=== PATIENT | female | born 1995 | race African-American/Black ===

== ENCOUNTER 2019-01-20 20:52 | Emergency (ER) | payer OTHER ==
[2019-01-20 22:05] LABS: Absolute Lymphocytes (CBC) 3.2 K/uL (0.7-4.9); Absolute Monocytes 0.6 K/uL (0.1-1.3); Absolute Neutrophil 2.6 K/uL (1.8-8.0); Basophils % 0.8 % (0-1.3); Eosinophils % 3.6 % (0-4.4); Hematocrit 41.8 % (36.0-45.0); Lymphocytes % 47.3 % (15.3-44.8); MPV 7.9 fL (7.6-11.3); Monocytes % 9.4 % (3.3-12.3); RBC Red Blood Cell Count 4.82 M/uL (3.86-4.86)
[2019-01-20] MEDS ORDERED: NA CHLORIDE 0.9% 1,000 ML ONE (22:06)
[2019-01-20 22:21] LABS: ALT/SGPT 27 U/L (12-78); AST/SGOT 17 U/L (15-37); Albumin 3.8 g/dL (3.4-5.0); Alkaline Phosphatase 78 U/L (45-117); BUN Blood Urea Nitrogen 16 mg/dL (7-18); Bicarbonate 26 mmol/L (21-32); Bilirubin Direct < 0.1 mg/dL (0-0.2); Bilirubin Total 0.2 mg/dL (0.2-1.0); Glucose Level 95 mg/dL (74-106); Magnesium 2.2 mg/dL (1.8-2.4); NT PRO-BNP 10 pg/mL (<125); Potassium 3.9 mmol/L (3.5-5.1); Protein, Total 7.5 g/dL (6.4-8.2); Sodium Level 143 mmol/L (136-145); Troponin (Emerg Dept Use Only) < 0.02 ng/mL (0.0-0.045)
[2019-01-20 22:26] LABS: Urine Blood NEGATIVE (NEG); Urine Glucose NEGATIVE (NEG); Urine Protein NEGATIVE (NEG); Urine Specific Gravity 1.015 (1.005-1.030); Urine pH 5.5 (5.0-7.0)
[2019-01-20 22:28] LABS: Protime INR 1.04
[2019-01-20 23:18] LABS: Blood Morphology Comment NOT SEEN (NOT SEEN); Platelet Estimate ADEQ
--- NOTE | 2019-01-21 00:18 | EDPHYS ---
Physician Documentation [facility] Name: Lexi Oconnor Age: 23 yrs Sex: Female : 1995 Arrival Date: 01/20/2019 Time: 20:53 Bed 25 Private MD: Lorraine Oconnor K ED Physician Patel Pineda HPI: 01/20 21:48 This 23 yrs old Black Female presents to ER via Wheelchair with complaints of Chest harris Tightness. 21:48 The patient or guardian reports chest pain that is located primarily in the anterior harris chest wall, bilaterally. The pain does not radiate. Associated signs and symptoms: Pertinent positives: shortness of breath. The chest pain is described as stabbing. Duration: The patient or guardian reports multiple episodes, that wax and wane. Modifying factors: The symptoms are alleviated by remaining still, the symptoms are aggravated by cough, deep breath. Severity of pain: At its worst the pain was mild in the emergency department the pain is unchanged. The patient has not experienced similar symptoms in the past. 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 - Social history:: Smoking status: Patient/guardian denies using tobacco. - Ebola Screening: : No symptoms or risks identified at this time. - Family history:: not pertinent. ROS: 21:48 Constitutional: Negative for fever, chills, and weight loss, Eyes: Negative for injury, harris pain, redness, and discharge, ENT: Negative for injury, pain, and discharge, Neck: Negative for injury, pain, and swelling, Cardiovascular: Negative for chest pain, palpitations, and edema, Abdomen/GI: Negative for abdominal pain, nausea, vomiting, diarrhea, and constipation, Back: Negative for injury and pain, : Negative for injury, bleeding, discharge, and swelling, MS/Extremity: Negative for injury and deformity, Skin: Negative for injury, rash, and discoloration, Neuro: Negative for headache, weakness, numbness, tingling, and seizure, Psych: Negative for depression, anxiety, suicide ideation, homicidal ideation, and hallucinations, Allergy/Immunology: Negative for hives, rash, and allergies, Endocrine: Negative for neck swelling, polydipsia, polyuria, polyphagia, and marked weight changes, Hematologic/Lymphatic: Negative for swollen nodes, abnormal bleeding, and unusual bruising. 21:48 Respiratory: Positive for shortness of breath. Exam: 21:48 Constitutional: This is a well developed, well nourished patient who is awake, alert, harris and in no acute distress. Head/Face: Normocephalic, atraumatic. Eyes: Pupils equal round and reactive to light, extra-ocular motions intact. Lids and lashes normal. Conjunctiva and sclera are non-icteric and not injected. Cornea within normal limits. Periorbital areas with no swelling, redness, or edema. ENT: Nares patent. No nasal discharge, no septal abnormalities noted. Tympanic membranes are normal and external auditory canals are clear. Oropharynx with no redness, swelling, or masses, exudates, or evidence of obstruction, uvula midline. Mucous membranes moist. Neck: Trachea midline, no thyromegaly or masses palpated, and no cervical lymphadenopathy. Supple, full range of motion without nuchal rigidity, or vertebral point tenderness. No Meningismus. Chest/axilla: Normal chest wall appearance and motion. Nontender with no deformity. No lesions are appreciated. Cardiovascular: Regular rate and rhythm with a normal S1 and S2. No gallops, murmurs, or rubs. Normal PMI, no JVD. No pulse deficits. Respiratory: Lungs have equal breath sounds bilaterally, clear to auscultation and percussion. No rales, rhonchi or wheezes noted. No increased work of breathing, no retractions or nasal flaring. Abdomen/GI: Soft, non-tender, with normal bowel sounds. No distension or tympany. No guarding or rebound. No evidence of tenderness throughout. Back: No spinal tenderness. No costovertebral tenderness. Full range of motion. Female : Normal external genitalia. Skin: Warm, dry with normal turgor. Normal color with no rashes, no lesions, and no evidence of cellulitis. MS/ Extremity: Pulses equal, no cyanosis. Neurovascular intact. Full, normal range of motion. Neuro: Awake and alert, GCS 15, oriented to person, place, time, and situation. Cranial nerves II-XII grossly intact. Motor strength 5/5 in all extremities. Sensory grossly intact. Cerebellar exam normal. Normal gait. Psych: Awake, alert, with orientation to person, place and time. Behavior, mood, and affect are within normal limits. 21:48 Musculoskeletal/extremity: DVT Exam: No signs of deep vein thrombosis. no pain, no swelling, no tenderness, negative Homans' sign noted on exam, no appreciated bluish discoloration, no erythema, no increased warmth. Vital Signs: 21:00 BP 145 / 88; Pulse 88; Resp 16; Temp 98.8(O); Pulse Ox 99% on R/A; Weight 64.86 kg; lp1 Height 5 ft. 7 in. (170.18 cm); Pain 0/10; 22:05 BP 115 / 77; Pulse 83; Resp 19 S; Pulse Ox 99% on R/A; ca1 23:00 BP 110 / 75; Pulse 89; Resp 19; Pulse Ox 100% on R/A; ca1 23:55 BP 108 / 65; Pulse 86; Resp 19 S; Pulse Ox 99% on R/A; ca1 01/21 00:20 BP 111 / 67; Pulse 82; Resp 19 S; Pulse Ox 99% on R/A; ca1 01/20 21:00 Body Mass Index 22.40 (64.86 kg, 170.18 cm) lp1 MDM: 01/20 21:17 Patient medically screened. [facility] 21:50 Data reviewed: vital signs, nurses notes, lab test result(s), EKG, radiologic studies, [facility] CT scan, plain films. 01/20 21:46 Order name: Basic Metabolic Panel; Complete Time: 23:07 [facility] 01/20 21:46 Order name: CBC with Diff; Complete Time: 23:27 [facility] 01/20 21:46 Order name: LFT's; Complete Time: 23:07 [facility] 01/20 21:46 Order name: Magnesium; Complete Time: 23:07 [facility] 01/20 21:46 Order name: NT PRO-BNP; Complete Time: 23:07 [facility] 01/20 21:46 Order name: PT-INR; Complete Time: 23:07 [facility] 01/20 21:46 Order name: Troponin (emerg Dept Use Only); Complete Time: 23:07 [facility] 01/20 21:46 Order name: XRAY Chest (1 view) [facility] 01/20 21:46 Order name: CT Chest For PE Angio [facility] 01/20 21:46 Order name: Urine Culture [facility] 01/20 21:57 Order name: Urine Dipstick--Ancillary (enter results); Complete Time: 23:07 [facility] 01/20 21:57 Order name: Urine --Ancillary (enter results); Complete Time: 23:07 [facility] 01/20 22:10 Order name: Manual Differential; Complete Time: 23:27 [facility] 01/20 21:46 Order name: EKG; Complete Time: 21:46 [facility] 01/20 21:46 Order name: Cardiac monitoring; Complete Time: 21:58 [facility] 01/20 21:46 Order name: EKG - Nurse/Tech; Complete Time: 21:58 [facility] 01/20 21:46 Order name: IV Saline Lock; Complete Time: 21:58 [facility] 01/20 21:46 Order name: Labs collected and sent; Complete Time: 21:58 [facility] 01/20 21:46 Order name: O2 Per Protocol; Complete Time: 21:58 [facility] 01/20 21:46 Order name: O2 Sat Monitoring; Complete Time: 21:59 [facility] 01/20 21:46 Order name: Urine Dipstick-Ancillary (obtain specimen); Complete Time: 21:58 [facility] 01/20 21:46 Order name: Urine Test (obtain specimen); Complete Time: 21:58 [facility] Administered Medications: 21:50 Drug: NS 0.9% 1000 ml Route: IV; Rate: 1 bolus; Site: left antecubital; ca1 23:12 Follow up: Response: No adverse reaction; IV Status: Completed infusion ca1 Disposition: 01/21/19 00:17 Discharged to Home. Impression: Chest pain on breathing. - Condition is Stable. - Discharge Instructions: Nonspecific Chest Pain, Pleurisy, Nonspecific Chest Pain, Roah-dg-Vnia, Pleurisy, [id number]-[id number]. - Prescriptions for Motrin IB 200 mg Oral Tablet - take 2 tablet by ORAL route every 6 hours As needed as needed with food; 30 tablet. Pepcid 20 mg Oral Tablet - take 1 tablet by ORAL route once daily; 20 tablet. - Medication Reconciliation Form, Thank You Letter, Antibiotic Education, Prescription Opioid Use form. - Follow up: Lorraine Oconnor; When: 2 - 3 days; Reason: Recheck today's complaints, Continuance of care, Re-evaluation by your physician. - Problem is new. - Symptoms have improved. Signatures: Dispatcher [employer] EDMS Patel Pineda MD MD cha Pena, Laura, RN RN lp1 Tere Iyer RN RN ca1 Corrections: (The following items were deleted from the chart) 01/21 00:36 00:17 01/21/2019 00:17 Discharged to Home. Impression: Chest pain on breathing. ca1 Condition is Stable. Discharge Instructions: Nonspecific Chest Pain, Nonspecific Chest Pain, [id number], Pleurisy, Pleurisy, [id number]. Prescriptions for Motrin IB 200 mg Oral Tablet - take 2 tablet by ORAL route every 6 hours As needed as needed with food; 30 tablet, Pepcid 20 mg Oral Tablet - take 1 tablet by ORAL route once daily; 20 tablet. and Forms are Medication Reconciliation Form, Thank You Letter, Antibiotic Education, Prescription Opioid Use. Follow up: Lorraine Oconnor; When: 2 - 3 days; Reason: Recheck today's complaints, Continuance of care, Re-evaluation by your physician. Problem is new. Symptoms have improved. harris
--- NOTE | 2019-01-21 00:18 | ER ---
Nurse's Notes [facility] Name: Lexi Oconnor Age: 23 yrs Sex: Female : 1995 Arrival Date: 01/20/2019 Time: 20:53 Bed 25 Private MD: Lorraine Oconnor K Diagnosis: Chest pain on breathing Presentation: 01/20 20:59 Presenting complaint: Patient states: Chest tightness that began an hour ago; "It's not lp1 painful, just like discomfort whenever I exhale";. Transition of care: patient was not received from another setting of care. Onset of symptoms was January 20, 2019 at 20:00. Risk Assessment: Do you want to hurt yourself or someone else? Patient reports no desire to harm self or others. Initial Sepsis Screen: Does the patient meet any 2 criteria? No. Patient's initial sepsis screen is negative. Does the patient have a suspected source of infection? No. Patient's initial sepsis screen is negative. Care prior to arrival: None. 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 - Social history:: Smoking status: Patient/guardian denies using tobacco. - Ebola Screening: : No symptoms or risks identified at this time. - Family history:: not pertinent. Screenin:01 Abuse screen: Denies threats or abuse. Denies injuries from another. Nutritional lp1 screening: No deficits noted. Tuberculosis screening: No symptoms or risk factors identified. Fall Risk None identified. Assessment: 21:00 General: Appears in no apparent distress. comfortable, Behavior is calm, cooperative, ca1 appropriate for age. Pain: Complains of pain in chest Pain does not radiate. Pain currently is 4 out of 10 on a pain scale. Quality of pain is described as tightness Pain began 1 hour ago. Neuro: Level of Consciousness is awake, alert, obeys commands, Oriented to person, place, time, situation. Cardiovascular: Heart tones S1 S2 present Capillary refill < 3 seconds Patient's skin is warm and dry. Respiratory: Airway is patent Respiratory effort is even, unlabored, Respiratory pattern is regular, symmetrical, Breath sounds are clear bilaterally. GI: Abdomen is flat, non-distended, Bowel sounds present X 4 quads. Abd is soft and non tender X 4 quads. : No deficits noted. No signs and/or symptoms were reported regarding the genitourinary system. EENT: No deficits noted. No signs and/or symptoms were reported regarding the EENT system. Derm: Skin is intact, is healthy with good turgor, Skin is pink, warm \\T\\ dry. Musculoskeletal: Circulation, motion, and sensation intact. Capillary refill < 3 seconds. 22:05 Reassessment: Patient appears in no apparent distress at this time. Patient and/or ca1 family updated on plan of care and expected duration. Pain level reassessed. Patient is alert, oriented x 3, equal unlabored respirations, skin warm/dry/pink. 23:00 Reassessment: Patient appears in no apparent distress at this time. Patient is alert, ca1 oriented x 3, equal unlabored respirations, skin warm/dry/pink. 23:55 Reassessment: Patient appears in no apparent distress at this time. Patient is alert, ca1 oriented x 3, equal unlabored respirations, skin warm/dry/pink. 01/21 00:20 Reassessment: Patient appears in no apparent distress at this time. Patient is alert, ca1 oriented x 3, equal unlabored respirations, skin warm/dry/pink. Vital Signs: 01/20 21:00 BP 145 / 88; Pulse 88; Resp 16; Temp 98.8(O); Pulse Ox 99% on R/A; Weight 64.86 kg; lp1 Height 5 ft. 7 in. (170.18 cm); Pain 0/10; 22:05 BP 115 / 77; Pulse 83; Resp 19 S; Pulse Ox 99% on R/A; ca1 23:00 BP 110 / 75; Pulse 89; Resp 19; Pulse Ox 100% on R/A; ca1 23:55 BP 108 / 65; Pulse 86; Resp 19 S; Pulse Ox 99% on R/A; ca1 01/21 00:20 BP 111 / 67; Pulse 82; Resp 19 S; Pulse Ox 99% on R/A; ca1 01/20 21:00 Body Mass Index 22.40 (64.86 kg, 170.18 cm) lp1 ED Course: 01/20 20:53 Patient arrived in ED. do 20:53 Lorraine Oconnor MD is Private Physician. do 21:00 Triage completed. lp1 21:00 Arm band placed on left wrist. lp1 21:00 Patient has correct armband on for positive identification. Placed in gown. Bed in low ca1 position. Call light in reach. Side rails up X 1. security monitor on. Pulse ox on. NIBP on. Warm blanket given. 21:01 Patient maintains SpO2 saturation greater than 95% on room air. lp1 21:16 Tere Iyer, LALI is Primary Nurse. ca1 21:17 Patel Pineda MD is Attending Physician. [facility] 21:58 Urine Culture Sent. ca1 22:02 X-ray completed. Portable x-ray completed in exam room. Patient tolerated procedure ls3 well. 22:03 XRAY Chest (1 view) In Process Unspecified. EDRI 22:14 Radiology exam delayed due to lab results not completed at this time. (BUN/Creatinine). [facility] 22:45 CT completed. Patient tolerated procedure well. Patient moved to CT via wheelchair. 22:53 CT Chest For PE Angio In Process Unspecified. EDRI 01/21 00:16 Lorraine Oconnor MD is Referral Physician. harris 00:35 No provider procedures requiring assistance completed. IV discontinued, intact, ca1 bleeding controlled, No redness/swelling at site. Pressure dressing applied. Administered Medications: 01/20 21:50 Drug: NS 0.9% 1000 ml Route: IV; Rate: 1 bolus; Site: left antecubital; ca1 23:12 Follow up: Response: No adverse reaction; IV Status: Completed infusion ca1 Outcome: 01/21 00:17 Discharge ordered by . harris 00:35 Discharged to home ambulatory. ca1 00:35 Condition: stable 00:35 Discharge instructions given to patient, family, Instructed on discharge instructions, follow up and referral plans. medication usage, Demonstrated understanding of instructions, follow-up care, medications, Prescriptions given X 2. 00:36 Patient left the ED. ca1 Signatures: Dispatcher [employer] EDRI Patel Pineda MD MD cha Hagler, Ervin [facility], Queta, RN RN lp1 Meghann, Addie Ellis 2 Radha Nickerson ls3 Tere Iyer RN RN ca1
--- NOTE | 2019-01-21 08:18 | EKG ---
Test Date: 2019-01-20 Test Time: 21:04:49 [facility] Medical: MEASUREMENT RESULTS: Intervals: Rate: 79 CO: 196 QRSD: 90 QT: 366 QTc: 419 [place]: P: 64 CO: 196 QRS: 83 T: 29 INTERPRETIVE STATEMENTS: Normal sinus rhythm Cannot rule out Anterior infarct, age undetermined Abnormal ECG No previous ECG available for comparison Electronically Signed On 01-21-19 07:51:09 CDT by Mark Tirado
--- NOTE | 2019-01-21 08:29 | RAD REPORT ---
EXAM DESCRIPTION: RAD - Chest Single View - 01/20/2019 10:03 pm CLINICAL HISTORY: COUGH Chest pain. COMPARISON: No comparisons FINDINGS: Portable technique limits examination quality. The lungs are grossly clear. The heart is normal in size. No displaced fractures. IMPRESSION: No acute intrathoracic process suspected.
--- NOTE | 2019-01-21 12:36 | RAD REPORT ---
EXAM DESCRIPTION: CT CHEST ANGIOGRAPHY WITH IV CONTRAST CLINICAL HISTORY: Shortness of breath. COMPARISON: None. TECHNIQUE: CT angiogram of the chest with IV contrast. 3-D MIP images were obtained in coronal and s agittal reconstructions. This exam was performed according to our departmental dose-optimization prog sarath, which includes automated exposure control, adjustment of the mA and/or kV according to patient s ize and/or use of iterative reconstruction technique. FINDINGS: No filling defects are identified in the pulmonary trunk, main left and right pulmonary ar teries, or the segmental branches. No aortic aneurysm or dissection is seen. The thyroid gland is normal. No mediastinal or hilar adenopathy. The heart size is normal without per icardial effusion. No consolidation, pleural effusion, or pneumothorax is identified. The visualized upper abdomen demonstrates no acute findings. No acute osseous findings are seen. IMPRESSION: No acute pulmonary embolism. Electronically signed by: Benito Meredith MD 01/20/2019 11:00 PM CDT Due to temporary technical issues with the PACS/Fluency reporting system, reports are being signed by the in house radiologist as a courtesy to ensure prompt reporting. The interpreting radiologist is f ully responsible for the content of the report.
== END 2019-01-21 00:36 | disposition home or self-care (01) ==
LOC: ER 20:52
DX: R07.1 Chest pain on breathing (principal)
CPT/HCPCS: 36415; 71045; 71275; 80048; 80076; 81003; 81025; 83735; 83880; 84484; 85025; 85610; 87086; 87088; 93005; 96360; 99285; J7030; Q9967